=== PATIENT | male | born 1950 | race Caucasian/White ===

== ENCOUNTER 2018-12-29 07:22 | Inpatient (IN) | payer MEDICARE ==
[2018-12-29] MEDS ORDERED: Albuterol Sulfate 2.5 mg/3 ml Neb ONE (07:39)
[2018-12-29] MEDS ORDERED: Albuterol Sulfate 2.5 mg/0.5 ml Neb ONE (07:39)
--- NOTE | 2018-12-29 07:39 | RAD ---
EXAM: Single view of the chest HISTORY: Difficulty breathing COMPARISON: None FINDINGS: Single view of the chest shows a normal sized cardiomediastinal silhouette. There is no mirna dence of consolidation, mass, or pleural effusion. Degenerative changes are seen in the spine. IMPRESSION: No evidence of acute cardiopulmonary disease
[2018-12-29] MEDS ORDERED: Magnesium 2 GM/50 ML BAG (IN WATER) ONE (07:51)
[2018-12-29] MEDS ORDERED: methylPREDNISolone Sod Succ/PF 125 MG/2 ML VIAL ONE (07:51)
[2018-12-29 07:56] LABS: Actual Bicarbonate (HCO3a) 57.5 mEq/L (22-28); Analyzer IN Cardio ER; Base Excess (BEa) 22.6 mEq/L (-2.0 to +3.0); Calcium, Ionized 1.22 mmol/L (1.12-1.30); Carboxyhemoglobin (COHb) 2.1 gm% (0.0-3.0); Hemoglobin (Hb) 14.1 g/dL (14.0-18.0); O2 Tension (PaO2) 73.7 mmHg (> 80.0); Potassium - ABG Lab 4.53 mmol/L (3.70-5.30)
[2018-12-29 07:57] LABS: CO2 Tension 138.2 mmHg (35.0-45.0); Puncture Site LRA; pH, Arterial 7.24 (7.35-7.45)
[2018-12-29 08:02] LABS: INR-International Normal Ratio 1.2
[2018-12-29 08:11] LABS: #Eosinphils 0.3 thou/uL (0.0-0.7); #Lymphocytes 1.4 thou/uL (1.20-3.40); #Monocytes 0.8 thou/uL (0.11-0.59); #Neutrophils 10.8 thou/uL (1.40-6.50); %Basophils 0.2 % (0.0-1.0); %Eosinophils 2.1 % (0.0-10.0); %Lymphocytes 10.7 % (21.0-51.0); %Monocytes 5.6 % (0.0-10.0); %Neutrophils 81.3 % (42.0-75.0); Hemoglobin 13.9 g/dL (14.0-18.0); Mean Corpuscular HGB CONC 29.7 g/dL (32.0-36.0); Mean Platelet Volume 8.2 fL (7.4-10.4); Platelet Count 211 thou/uL (130-400); RBC Distribution Width 12.3 % (11.5-14.5); Red Blood Cell (RBC) Count 4.48 mill/uL (4.70-6.10); White Blood Cell (WBC) Count 13.3 thou/uL (4.8-10.8)
[2018-12-29 08:12] LABS: ALT (SGPT) 9 U/L (8-55); AST (SGOT) 12 U/L (5-34); Albumin 4.1 g/dL (3.4-4.8); Alkaline Phosphatase 53 U/L (40-150); BUN (Urea Nitrogen) 19 mg/dL (8.4-25.7); Bilirubin, Total 0.7 mg/dL (0.2-1.2); CK (CPK) 48 U/L (30-200); Calc. Creatinine Clearance 0 mL/min (70-130); Calcium 10.3 mg/dL (7.8-10.44); Estimated GFR-MDRD Greater than 90; Globulin 3.3 g/dL (2.4-3.5); Protein, Total 7.4 g/dL (5.8-8.1)
[2018-12-29 08:19] LABS: Glucose 168 mg/dL (80-115)
[2018-12-29 08:22] LABS: Chloride 86 mmol/L (98-107); Potassium 4.7 mmol/L (3.5-5.1); Sodium 146 mmol/L (136-145)
[2018-12-29 08:24] LABS: Bilirubin Small (Negative); Blood, Urine Trace (Negative); Glucose, Urine (Dipstick) Negative (Negative); Leukocyte Negative (Negative); Nitrite Negative (Negative); Protein, Urine (Dipstick) > or equal to 300 mg/dL (Neg-Trace)
[2018-12-29 08:24] LABS: Anion Gap 16 mmol/L (10-20)
[2018-12-29 08:27] LABS: Carbon Dioxide 49 mmol/L (23-31)
[2018-12-29 08:29] LABS: Macrocytosis SLIGHT = 6-15 cells (100X) (0-5/hpf); Stomatocytes SLIGHT = 2-5 cells (100X) (0-1/hpf)
[2018-12-29 08:33] LABS: CKMB 2.1 ng/mL (0-6.6)
[2018-12-29 08:37] LABS: Clarity Hazy (Clear)
[2018-12-29 08:45] LABS: RBC/HPF 0-3 HPF (0-3); Renal Epithelial 0-3 HPF (None Seen); Squamous Epithelial 0-3 HPF (0-3); WBC/HPF 0-3 HPF (0-3)
[2018-12-29 08:46] LABS: Bacteria/HPF None Seen HPF (None Seen)
[2018-12-29] MEDS ORDERED: Acetaminophen 325 MG TAB PO PRN (10:52)
[2018-12-29] MEDS ORDERED: Diabetic Tussin 200 MG/10 ML UDCUP PO PRN (10:52)
[2018-12-29] MEDS ORDERED: Sodium Chloride 0.65% Nasal 44 ML BOT EA NARE PRN (10:52)
[2018-12-29] MEDS ORDERED: Bisacodyl 10 MG SUPP PR PRN (10:52)
[2018-12-29] MEDS ORDERED: Loperamide HCl 2 MG CAP PO PRN (10:52)
[2018-12-29] MEDS ORDERED: cloNIDine 0.1 MG TAB PO PRN (10:52)
[2018-12-29] MEDS ORDERED: Senokot S 8.6-50 MG TAB PO PRN (10:52)
[2018-12-29] MEDS ORDERED: Bisacodyl 5 MG TAB PO PRN (10:52)
[2018-12-29] MEDS ORDERED: Ondansetron ODT 4 MG TAB PO PRN (10:52)
[2018-12-29] MEDS ORDERED: Cepastat Lozenges 1 LOZ PO PRN (10:52)
[2018-12-29] MEDS ORDERED: Loratadine 10 MG TAB PO PRN (10:52)
[2018-12-29] MEDS ORDERED: Ondansetron PF 4 MG/2 ML Vial IVP PRN (10:52)
[2018-12-29] MEDS ORDERED: Calcium Carbonate 500 MG ChewTAB PO PRN (10:52)
[2018-12-29] MEDS ORDERED: hydrALAZINE 20 MG/ML VIAL SLOW IVP PRN (10:52)
[2018-12-29 11:21] LABS: Troponin I 0.079 ng/mL (< 0.028)
[2018-12-29] MEDS: cefTRIAXone\\ROCEPHIN 1 GM in Sodium Chloride 0.9% 100 ML IVPB SCH (12:27)
[2018-12-29] MEDS: Sodium Chloride 0.45% 1,000 ML IV SCH (12:27)
--- NOTE | 2018-12-29 13:12 | HP ---
PRIMARY CARE PHYSICIAN: [facility]. REASON FOR ADMISSION: Acute on chronic respiratory failure, COPD and CHF exacerbation, demand ischemia of myocardium, metabolic encephalopathy. HISTORY OF PRESENT ILLNESS: A 68-year-old male, who has underlying history of COPD and CHF. He has home oxygen. He was brought to emergency room with increasing shortness of breath. He was hypoxic at home. He required CPAP by Paramedics. Even after CPAP, he was hypoxic in the emergency room and that is why he required a BiPAP. The patient was only alert and oriented x1, and that is why he was not able to provide any good history. As per report, the patient was combative and disoriented on the road on transfer. The patient lives at home with his , and his called Paramedics because of his increasing shortness of breath that started probably yesterday. 911 was called earlier today. The patient was evaluated in the emergency room and he was found with hypoxia. He has leukocytosis with left shift and elevated troponin. His ABG showed respiratory acidosis and metabolic compensation. When I tried to get history from him, the patient was not able to provide any history and no family member was present, so history was obtained from reviewing emergency room record. REVIEW OF SYSTEMS: All review of system tried to review with the patient, but unable to review because of encephalopathy. PAST MEDICAL HISTORY: 1. Chronic diastolic heart failure. 2. Chronic atrial fibrillation. 3. Chronic respiratory failure with hypoxia and hypercapnia, on home oxygen therapy. 4. COPD. 5. Hypertension. 6. Dyslipidemia. 7. Obesity. 8. Physical deconditioning. PAST SURGICAL HISTORY: Hernia repair. PAST PSYCHIATRIC HISTORY: Senile dementia. SOCIAL HISTORY: The patient is a former smoker. He currently lives at home with his . Six months ago, he used to smoke about 2 packs per day. No alcohol abuse history. FAMILY HISTORY: Unable to obtain from the patient at this point. ALLERGIES: NO KNOWN DRUG ALLERGIES. CURRENT HOME MEDICATIONS: 1. Aspirin 81 mg daily. 2. Pradaxa 150 mg twice daily. 3. Coreg 12.5 mg twice daily. 4. Lisinopril 10 mg daily. 5. Cardizem 30 mg 3 times daily. 6. Lasix 40 mg twice daily. 7. Symbicort 2 puffs inhalation b.i.d. 8. ProAir HFA q.6 hourly. EMERGENCY ROOM COURSE: The patient was requiring BiPAP in the emergency room. He has received DuoNeb therapy, Solu-Medrol 125 mg, magnesium sulfate 2 g, and IV fluid. PHYSICAL EXAMINATION: VITAL SIGNS: Currently in the emergency room, blood pressure 101/66, pulse 63, irregular, respiratory rate 24, temperature 99.1, saturation 92% on BiPAP, weight 117.9 kg. GENERAL: The patient is chronically ill, on BiPAP, appears confused, not answering proper question. HEENT: Head: Normocephalic and atraumatic. Eyes: Pupils round and reactive to light. Extraocular muscles intact. ENT: Oropharynx within normal limits. Moist mucous membranes. No oral lesion. No pharyngeal erythema. NECK: Short neck. Difficult to assess JVD. No thyromegaly. No carotid bruit. LUNGS: Bilateral air entry, reduced on both sides, a few end-expiratory wheezing heard, but no obvious rales noted. No accessory muscles of respiration in use. CARDIAC: S1 and S2, appear slightly irregular. No murmur elicited. No gallop. No rub. ABDOMEN: Soft. Bowel sounds present. Nontender. Nondistended. No organomegaly. No mass. No suprapubic tenderness. BACK: Unremarkable. No CVA tenderness. EXTREMITIES: Upper extremity: Passive movement of all joints are normal. Lower extremity: Bilateral lower extremity edema noted. SKIN: No skin rash, but dry, and old rash noted. NEUROLOGIC: The patient is only alert and oriented x1. He appears confused. He does not follow proper commands, so detailed neurological examination is not possible. SIGNIFICANT LABORATORY DATA: EKG showing atrial fibrillation with controlled ventricular response. Chest x-ray based on my review, no evidence of acute cardiopulmonary process. No pneumonia. CBC: WBC 13.3, hemoglobin 13.9, platelet 211. INR 1.2. ABG: PH 7.24, pCO2 of 138.2, O2 of 73.7, bicarb 57.5, CO2 of 138.2. BMP: Sodium 146, potassium 4.7, chloride 86, carbon dioxide 49, anion gap 16, BUN 19, creatinine 0.74, glucose 168, calcium 10.3, lactic acid 1.0. LFT: AST 12, ALT 9, alkaline phosphatase 53, albumin 4.1. Troponin I 0.065 and then 0.079. Urinalysis suspicious for UTI, but more proteinuria. ASSESSMENT AND PLAN: 1. Acute metabolic encephalopathy, most likely related with a CO2 narcosis. Baseline patient's condition is not known. He might have underlying chronic ischemic white matter changes from his chronic medical problem, and he may have underlying dementia. At this point, mainly CO2 retention contributing to his encephalopathy, though he is not lethargic, but he is confused. He does not have any focal neurological deficit. 2. Acute on chronic respiratory failure with hypoxia and hypercapnia requiring BiPAP. The patient is using home oxygen therapy as well as is using CPAP machine at home. Currently, he will need DuoNeb therapy every 4 hourly, Dulera 2 puffs inhalation b.i.d., Solu-Medrol 40 mg IV q.6 hourly, and empiric antibiotic therapy with Rocephin 1 g q.24 hours. Pulmonary group is already consulted. 3. Chronic obstructive pulmonary disease exacerbation. As mentioned above, the patient is on empiric antibiotic therapy, DuoNeb q.4 hourly, Dulera 2 puffs inhalation b.i.d., Solu-Medrol 40 mg IV q.6 hourly. Pulmonary group is following. 4. Obstructive sleep apnea, on CPAP machine. Currently, the patient is requiring BiPAP for his CO2 retention. Eventually, will transition to home CPAP machine. 5. Acute on chronic respiratory acidosis with metabolic compensation. This patient is started on acetazolamide 500 mg IV daily by Pulmonary group. The patient is on BiPAP therapy. 6. Chronic atrial fibrillation, rate controlled. The patient is on chronic anticoagulation therapy which we will continue while in hospital after verification of his home dose. 7. Demand ischemia of myocardium due to hypoxia and hypercapnia. We will obtain echocardiography. The patient will continue with aspirin 81 mg p.o. daily. 8. Deep venous thrombosis prophylaxis. Currently, we are starting Lovenox, but once the patient's home dose of Pradaxa is confirmed, then we will resume that one and discontinue Lovenox. Currently, continue Lovenox for now. 9. Gastrointestinal prophylaxis. Pepcid 20 mg p.o. or IV daily. 10. Obesity with dietary education given and weight loss education given. 11. Macrocytosis. The patient will need folic acid and vitamin B12 therapy. CODE STATUS: The patient is full code. The patient's is surrogate decision maker. DISPOSITION PLAN: Based on clinical course, we are expecting the patient stay in hospital more than 2 midnights. Plan of care discussed with the patient in detail. He may need placement upon discharge. Job ID: [id number]
[2018-12-29] MEDS ORDERED: Diltiazem 125 MG in Sodium Chloride 0.9% 100 ML IVPB SCH (13:30)
[2018-12-29 14:05] LABS: Troponin I 0.062 ng/mL (< 0.028)
[2018-12-29] MEDS: methylPREDNISolone Sod Succ 40 MG VIAL IVP SCH ×2 (14:49→20:50)
--- NOTE | 2018-12-29 15:05 | CON ---
DATE OF CONSULTATION: HISTORY OF PRESENT ILLNESS: He is a 68-year-old morbidly obese gentleman, well known to me. He has end-stage COPD, long-time smoker, obesity hypoventilation syndrome, who has severe limitation to activities. He can barely walk 50 feet without getting markedly short of breath. He comes to the office on a regular basis. found him this morning with change in mental status, with ongoing shortness of breath with several days duration. He is on a BiPAP and still appears to be somewhat encephalopathic. Initially in the ER, his blood pressure was 150/80, his saturations on 2 L were 90%. Altered mental status, placed on BiPAP. Pulse 93, respirations 23. In the MICU, he is denying any chest pain, chills, or sweats. PAST MEDICAL HISTORY: CHF, cardiac arrhythmia, atrial fibrillation, end-stage COPD, obesity, sleep apnea, and hypertension. PAST SURGICAL HISTORY: Hernia surgery. SOCIAL HISTORY: Tobacco, two pack-a-day smoker. CHRONIC MEDICATIONS: Include; 1. Aspirin. 2. Pradaxa 150. 3. Coreg 25. 4. Lisinopril 20. 5. Cardizem 60. 6. Lasix 40. 7. Symbicort inhaler. 8. Albuterol nebulizer. ALLERGIES: NONE. REVIEW OF SYSTEMS: Otherwise, unremarkable. PHYSICAL EXAMINATION: VITAL SIGNS: : On examination in the MICU, his saturations are 94%, pulse 80, blood pressure 100/80. Extremities: No edema. CHEST: Decreased breath sounds. Prolonged expiration. CARDIAC: S1 and S2. No gallops. ABDOMEN: No masses. LABORATORY DATA: White count 20,000, H and H of 13 and 46, and platelet count is 211. Labs unremarkable. PO2 of 73, pCO2 of 138, pH 7.24 on 100%, bicarb was 49. Troponin is normal. UA is negative. IMAGING DATA: Chest x-ray, no acute infiltrates. IMPRESSION: 1. Acute on chronic respiratory failure. 2. Morbid obesity. 3. Severe chronic obstructive pulmonary disease. 4. Marked metabolic alkalosis from diuretics and chronic pCO2 retention. 5. Atrial fibrillation. PLAN: I have added Diamox to his present treatment. I added neb treatments, steroids, supportive care. Discussed with family code status. This is a 45-minute critical care time. Job ID: [id number]
--- NOTE | 2018-12-29 17:51 | CON ---
DATE OF CONSULTATION: 12/29/2018 REASON FOR CONSULT: Atrial fibrillation with RVR. PRIMARY WEBSPHERE MESSAGE BROKER DEVELOPER: Sawyer Laguerre MD HISTORY OF PRESENT ILLNESS: Mr. Luu is a pleasant 68-year-old white gentleman, comes to the hospital for altered mentation and shortness of breath. He has end-stage COPD with home O2, followed by Dr. Jacques. noted that he was getting significantly more short winded than normal and eventually become altered, so she called 911. He was brought over for this same reason, thought to be hypercapnic and that was the reason why he was altered, so he was placed on a BiPAP and admitted for further evaluation. He has a history of chronic atrial fibrillation and his heart rate has been anywhere from 80s to 130s, but since he has been off the BiPAP and is doing better. His heart rate has remained in the 80s to low 100s. Currently, he is still just a little bit confused with a hard time conversing, but he is able to talk. He is pleasant and is on nasal cannula only. PAST MEDICAL HISTORY: 1. Chronic atrial fibrillation. 2. End-stage COPD. 3. Chronic respiratory insufficiency with hypoxia and hypercapnia, on home O2. 4. Hypertension. 5. Hyperlipidemia. 6. Obesity. 7. Severe deconditioning. 8. Chronic diastolic dysfunction. SURGICAL HISTORY: Hernia repair. SOCIAL HISTORY: Former smoker. No alcohol, tobacco, or drugs. Quit smoking about 6 months ago. He was a two-pack a day smoker before that. FAMILY HISTORY: Noncontributory. OUTPATIENT MEDICATIONS: 1. Aspirin 81 a day. 2. Pradaxa 150 mg twice a day. 3. Coreg 12.5 b.i.d. 4. Lisinopril 10 mg a day. 5. Cardizem 30 mg 3 times a day. 6. Lasix 40 mg twice a day. 7. Symbicort. 8. ProAir. ALLERGIES: NO KNOWN DRUG ALLERGIES. REVIEW OF SYSTEMS: Unobtainable as the patient remains confused. PHYSICAL EXAMINATION: VITAL SIGNS: Temperature 98.3, pulse 94, respiratory rate 18, sat 94% on 2 L nasal cannula, blood pressure 146/102. GENERAL: Awake, alert, and oriented to person only, in no distress. HEENT: Normocephalic and atraumatic. NECK: Supple. LUNGS: Lungs are reduced breath sounds bilateral. CARDIOVASCULAR: Irregularly irregular, heart rate in the 90s. ABDOMEN: Soft, positive bowel sounds. EXTREMITIES: 1+ edema. SKIN: Warm and dry. LABORATORY DATA: Laboratory work was reviewed. White count of 13, hemoglobin 13, hematocrit 46, platelet count of 211. Coags were reviewed. ABG was reviewed. His CO2 was 138. Chemistry with a sodium 146, potassium 4.7, chloride of 86, carbon dioxide of 49, gap was 16, normal BUN and creatinine. Troponin is indeterminate x3 of 0.06, 0.07, and 0.06 with a normal CK-MB. DIAGNOSTIC DATA: EKG was reviewed. Chest x-ray was reviewed. ASSESSMENT AND PLAN: 1. Chronic obstructive pulmonary disease with acute exacerbation. 2. [id number] diastolic heart failure. One dose of IV Lasix has been already given. Will not diurese any further. 3. Chronic atrial fibrillation, currently rate controlled and has been rapid ventricular response in the recent past. PLAN: 1. His ventricular rate has slowed down, now that his COPD is better controlled. I would not change any of his medications at this time. We would continue with current doses of diltiazem as most likely the reason why his atrial fibrillation and RVR was because of his altered mentation and hypercapnic hypoxic respiratory insufficiency. 2. Continue to monitor on telemetry. Thank you for letting me to participate in the care of your patient. We will follow. Job ID: [id number]
[2018-12-29] MEDS: Mometasone/Formoterol 120 PUFF INHALER INH SCH (18:29)
[2018-12-29] MEDS: Famotidine 20 MG TAB PO SCH (20:50)
[2018-12-29] MEDS: Famotidine/PF 20 mg/2ml Vial SLOW IVP SCH (21:27)
[2018-12-30] MEDS: methylPREDNISolone Sod Succ 40 MG VIAL IVP SCH ×4 (01:54→20:57)
[2018-12-30 06:14] LABS: ALT (SGPT) 7 U/L (8-55); AST (SGOT) 8 U/L (5-34); Albumin 3.6 g/dL (3.4-4.8); Alkaline Phosphatase 43 U/L (40-150); BUN (Urea Nitrogen) 19 mg/dL (8.4-25.7); Bilirubin, Total 0.6 mg/dL (0.2-1.2); Calc. Creatinine Clearance 195 mL/min (70-130); Calcium 9.9 mg/dL (7.8-10.44); Estimated GFR-MDRD Greater than 90; Globulin 2.8 g/dL (2.4-3.5); Glucose 169 mg/dL (80-115); Protein, Total 6.4 g/dL (5.8-8.1)
[2018-12-30 06:34] LABS: Chloride 88 mmol/L (98-107); Potassium 4.7 mmol/L (3.5-5.1); Sodium 141 mmol/L (136-145)
[2018-12-30 06:37] LABS: Anion Gap 11 mmol/L (10-20)
[2018-12-30 06:45] LABS: Hemoglobin 12.9 g/dL (14.0-18.0); Mean Corpuscular HGB CONC 30.6 g/dL (32.0-36.0); Mean Platelet Volume 8.6 fL (7.4-10.4); Platelet Count 168 thou/uL (130-400); RBC Distribution Width 12.5 % (11.5-14.5); Red Blood Cell (RBC) Count 4.16 mill/uL (4.70-6.10); White Blood Cell (WBC) Count 12.5 thou/uL (4.8-10.8)
[2018-12-30 06:46] LABS: Carbon Dioxide 47 mmol/L (23-31)
[2018-12-30] MEDS: Mometasone/Formoterol 120 PUFF INHALER INH SCH ×2 (08:01→18:44)
--- NOTE | 2018-12-30 08:55 | PRG ---
DATE OF SERVICE: 12/30/2018 SUBJECTIVE: This morning, he is awake, alert, and responsive. Bicarb is still 47. OBJECTIVE: VITAL SIGNS: Saturations 97% on 2 L, temperature 98, pulse 79, and blood pressure 150/80. EXTREMITIES: No edema. CHEST: Decreased breath sounds. No wheezing. CARDIAC: Normal S1 and S2. No gallops. ABDOMEN: No masses. IMPRESSION AND PLAN: 1. End-stage chronic obstructive pulmonary disease and sleep apnea with marked respiratory acidosis. 2. Marked metabolic alkalosis in combination of respiratory failure along with diuretics, volume contraction. I will discontinue the Lasix. Continue Diamox. Repeat echo. Supportive care, PT. He is a full code. Job ID: [id number]
[2018-12-30] MEDS: Aspirin Chewable 81 MG TAB PO SCH (09:00)
[2018-12-30] MEDS ORDERED: Enoxaparin Sodium 40 MG/0.4 ML SYRINGE SC SCH (09:00)
[2018-12-30] MEDS: Famotidine 20 MG TAB PO SCH ×2 (09:00→20:57)
[2018-12-30] MEDS: Folic Acid 1 MG TAB PO SCH (09:00)
[2018-12-30] MEDS ORDERED: Furosemide 40 MG TAB PO SCH (09:00)
[2018-12-30] MEDS: Lisinopril 20 MG TAB PO SCH (09:00)
[2018-12-30] MEDS: Cyanocobalamin (Vitamin B-12) 1,000 MCG TAB PO SCH (09:00)
[2018-12-30] MEDS: Carvedilol 25 MG TAB PO SCH ×2 (09:01→20:57)
[2018-12-30] MEDS: acetaZOLAMIDE Sodium 500 mg Vial IVP SCH (09:01)
[2018-12-30 09:02] LABS: Band 1 % (5-11); Eosinophils 1 % (0-10); Lymphocytes 12 % (21-51); MDiff Complete? YES; Monocytes 2 % (0-10); Neutrophil 84 % (42-75); RBC Morphology Normal
[2018-12-30] MEDS: Diltiazem HCl SR 60 mg Capsule PO SCH ×3 (09:02→20:57)
[2018-12-30] MEDS: Dabigatran 150 mg Capsule PO SCH ×2 (09:02→20:57)
[2018-12-30] MEDS: Famotidine/PF 20 mg/2ml Vial SLOW IVP SCH ×2 (09:03→20:58)
[2018-12-30] MEDS: Sodium Chloride 0.45% 1,000 ML IV SCH (09:03)
[2018-12-30] MEDS: cefTRIAXone\\ROCEPHIN 1 GM in Sodium Chloride 0.9% 100 ML IVPB SCH (11:40)
--- NOTE | 2018-12-30 13:20 | PDOC.HOSPP ---
- Subjective Subjective: Patient seen and examined. No new complaints. No overnight events - Objective Vital Signs & Weight: Vital Signs (12 hours) Temp Pulse Resp BP Pulse Ox 12/30/18 10:41 98.0 F 12/30/18 10:23 99 15 91 L 12/30/18 09:00 135/92 H 12/30/18 08:22 97 12/30/18 07:28 79 12/30/18 07:27 74 15 93 L 12/30/18 07:10 97.1 F L 12/30/18 04:00 97.5 F L 12/30/18 02:21 76 19 95 Weight Weight 279 lb 1.6 oz Most Recent Monitor Data Heart Rate from ECG 80 NIBP 122/86 NIBP BP-Mean 98 Respiration from ECG 16 SpO2 95 I&O: 12/29/18 12/30/18 12/31/18 06:59 06:59 06:59 Intake Total 1974.9 Output Total 1250 Balance 724.9 Result Diagrams: 12/30/18 05:41 12/30/18 05:40 EKG Reviewed by me: Yes ROS - Review of Systems All systems: All other ROS were reviewed and found negative. ENT: denies: ear pain, ear discharge, nose pain, nose discharge, nose congestion , mouth pain, mouth swelling, throat pain, throat swelling, other Respiratory: reports: shortness of breath, SOB with excertion. denies: cough, dry, hemoptysis, pleuritic pain, sputum, wheezing, other Cardiovascular: denies: chest pain, palpitations, orthopnea, paroxysmal noc. dyspnea, edema, light headedness, other Gastrointestinal: denies: nausea, vomitting, abdominal pain, diarrhea, constipation, melena, hematochezia, other Genitourinary: denies: dysuria, frequency, incontinence, hematuria, retention, other Musculoskeletal: denies: neck pain, shoulder pain, arm pain, back pain, hand pain, leg pain, foot pain, other - Medication Medications: Active Medications Generic Name Dose Route Start Last Admin Trade Name Freq PRN Reason Stop Dose Admin Acetazolamide Sodium 500 mg 12/30/18 09:00 12/30/18 09:01 Diamox IVP 01/02/19 09:01 500 mg DAILY MELISSA Administration Albuterol/Ipratropium 3 ml 12/29/18 14:30 12/30/18 10:23 Duoneb NEB 3 ml [id number] MELISSA Administration Aspirin 81 mg 12/30/18 09:00 12/30/18 09:00 Aspirin Chewable PO 81 mg DAILY MELISSA Administration Carvedilol 25 mg 12/30/18 09:00 12/30/18 09:01 Coreg PO 25 mg BID MELISSA Administration Cyanocobalamin 1,000 mcg 12/30/18 09:00 12/30/18 09:00 Vitamin B-12 PO 1,000 mcg DAILY MELISSA Administration Dabigatran 150 mg 12/30/18 09:00 12/30/18 09:02 Pradaxa PO 150 mg BID MELISSA Administration Diltiazem HCl 60 mg 12/30/18 09:00 12/30/18 09:02 Cardizem Sr PO 60 mg TID MELISSA Administration Famotidine 20 mg 12/29/18 21:00 12/30/18 09:03 Pepcid SLOW IVP Not Given Q12HR MELISSA Famotidine 20 mg 12/29/18 21:00 12/30/18 09:00 Pepcid PO 20 mg BID MELISSA Administration Folic Acid 1 mg 12/30/18 09:00 12/30/18 09:00 Folvite PO 1 mg DAILY MELISSA Administration Ceftriaxone Sodium 1 gm/ 100 mls @ 200 mls/hr 12/29/18 12:00 12/30/18 11:40 Sodium Chloride IVPB 100 mls 1200 MELISSA Administration Sodium Chloride 1,000 mls @ 50 mls/hr 12/29/18 11:15 12/30/18 09:03 1/2 Normal Saline IV 1,000 mls .Q20H MELISSA Administration Diltiazem HCl 125 mg/ Sodium 125 mls @ 5 mls/hr 12/29/18 13:30 12/29/18 14:48 Chloride IVPB 125 mls INF MELISSA Administration Protocol 5 MG/HR Lisinopril 20 mg 12/30/18 09:00 12/30/18 09:00 Zestril PO 20 mg DAILY MELISSA Administration Methylprednisolone Sodium Succinate 40 mg 12/29/18 14:00 12/30/18 09:01 Solu-Medrol IVP 40 mg 0200,0800,1400,2000 MELISSA Administration Mometasone Furoate/Formoterol Fumar 2 puff 12/29/18 18:30 12/30/18 08:01 Dulera 200 Mcg/5 Mcg Inhaler INH 2 puff BID-RT MELISSA Administration Hosp A/P (1) Acute metabolic encephalopathy Code(s): G93.41 - METABOLIC ENCEPHALOPATHY Status: Acute (2) Acute on chronic respiratory failure with hypoxia and hypercapnia Code(s): J96.21 - ACUTE AND CHRONIC RESPIRATORY FAILURE WITH HYPOXIA; J96.22 - ACUTE AND CHRONIC RESPIRATORY FAILURE WITH HYPERCAPNIA Status: Acute (3) COPD exacerbation Code(s): J44.1 - CHRONIC OBSTRUCTIVE PULMONARY DISEASE W (ACUTE) EXACERBATION Status: Acute (4) Type 2 myocardial infarction Code(s): I21.A1 - MYOCARDIAL INFARCTION TYPE 2 Status: Acute (5) Chronic anticoagulation Code(s): Z79.01 - REEL ASSEMBLER (CURRENT) USE OF ANTICOAGULANTS Status: Chronic (6) Chronic atrial fibrillation with RVR Code(s): I48.2 - CHRONIC ATRIAL FIBRILLATION Status: Chronic (7) Chronic respiratory acidosis Code(s): E87.2 - ACIDOSIS Status: Chronic (8) Chronic stage c diastolic heart failure Code(s): I50.32 - CHRONIC DIASTOLIC (CONGESTIVE) HEART FAILURE Status: Chronic (9) Dyslipidemia Code(s): E78.5 - HYPERLIPIDEMIA, UNSPECIFIED Status: Chronic (10) Hypertension Code(s): I10 - ESSENTIAL (PRIMARY) HYPERTENSION Status: Chronic (11) Macrocytosis Code(s): D75.89 - OTHER SPECIFIED DISEASES OF BLOOD AND BLOOD-FORMING ORGANS Status: Chronic (12) PAIGE on CPAP Code(s): G47.33 - OBSTRUCTIVE SLEEP APNEA (ADULT) (PEDIATRIC); Z99.89 - DEPENDENCE ON OTHER ENABLING MACHINES AND DEVICES Status: Chronic (13) Obesity (BMI 30-39.9) Code(s): E66.9 - OBESITY, UNSPECIFIED Status: Chronic - Plan old records reviewed/req, plan discussed w/ family, continue antibiotics, respiratory therapy pt has improvement home medication reconciled dc lasix continue diamox continue rocephin and steroid discussed with transfer to tele will defer to pulmonary continue bipap
[2018-12-30] MEDS: Rosuvastatin 5 MG TAB PO SCH (20:57)
[2018-12-31] MEDS: methylPREDNISolone Sod Succ 40 MG VIAL IVP SCH ×3 (02:32→12:05)
[2018-12-31] MEDS: Sodium Chloride 0.45% 1,000 ML IV SCH (02:34)
[2018-12-31] MEDS: Lisinopril 20 MG TAB PO SCH (08:51)
[2018-12-31] MEDS: Cyanocobalamin (Vitamin B-12) 1,000 MCG TAB PO SCH (08:51)
[2018-12-31] MEDS: Dabigatran 150 mg Capsule PO SCH ×2 (08:51→21:45)
[2018-12-31] MEDS: Aspirin Chewable 81 MG TAB PO SCH (08:51)
[2018-12-31] MEDS: Carvedilol 25 MG TAB PO SCH ×2 (08:51→21:44)
[2018-12-31] MEDS: Famotidine 20 MG TAB PO SCH ×2 (08:52→21:45)
[2018-12-31] MEDS: Diltiazem HCl SR 60 mg Capsule PO SCH ×3 (08:52→21:45)
[2018-12-31] MEDS: Folic Acid 1 MG TAB PO SCH (08:52)
[2018-12-31] MEDS: acetaZOLAMIDE Sodium 500 mg Vial IVP SCH (08:52)
[2018-12-31] MEDS: Famotidine/PF 20 mg/2ml Vial SLOW IVP SCH ×2 (08:56→22:21)
[2018-12-31] MEDS: Sterile Water 10 ML VIAL IVP SCH (09:19)
[2018-12-31] MEDS: Cefdinir 300 MG CAP PO SCH ×2 (09:20→21:44)
[2018-12-31 09:39] LABS: BUN (Urea Nitrogen) 22 mg/dL (8.4-25.7); Calc. Creatinine Clearance 180 mL/min (70-130); Calcium 9.9 mg/dL (7.8-10.44); Estimated GFR-MDRD Greater than 90; Glucose 209 mg/dL (80-115)
[2018-12-31 09:49] LABS: Anion Gap 12 mmol/L (10-20); Carbon Dioxide 40 mmol/L (23-31); Chloride 92 mmol/L (98-107); Sodium 140 mmol/L (136-145)
[2018-12-31] MEDS ORDERED: methylPREDNISolone Sod Succ 40 MG VIAL IVP SCH (12:15)
[2018-12-31] MEDS: Mometasone/Formoterol 120 PUFF INHALER INH SCH ×2 (13:19→15:04)
[2018-12-31] MEDS ORDERED: Dextrose 50% Abboject 50 ML SYRINGE SLOW IVP PRN (14:06)
[2018-12-31] MEDS ORDERED: Dextrose 5% in Water 1,000 ML IV PRN (14:06)
--- NOTE | 2018-12-31 14:29 | PRG ---
DATE OF SERVICE: 12/31/2018 SUBJECTIVE: The patient is seen and examined at the bedside. His mental condition definitely improved. He is able to answer my questions properly. He does not remember that he was told by his doctor that he has some prostate problem, but he noticed that his urinary flow is significantly diminished, especially recently and he has post voiding dripping. OBJECTIVE: VITAL SIGNS: Blood pressure is 122/75, pulse is 77, respiratory rate is 14, and O2 saturation is 94% on O2. HEENT: His head is atraumatic and normocephalic. Eyes are PERRLA. Sclerae are nonicteric. Oral mucosa is moist. NECK: Supple. LUNGS: Emphysematous. HEART: S1 and S2 normal. No S3. No S4. ABDOMEN: Soft, nontender, slightly obese. EXTREMITIES: No clubbing or cyanosis. There is a 1+ peripheral edema similar bilaterally on both lower extremities. NEUROLOGICAL: He follows my commands. He moves his all 4 extremities. LABORATORY DATA: Labs showed sodium of 140; potassium 4.0; chloride 92; CO2 of 40; BUN 22; creatinine 0.7; and glucose is 209, it was 169 yesterday. Urine culture negative. Blood cultures x2 negative. IMPRESSION: 1. Acute metabolic encephalopathy, improved. 2. Acute on chronic respiratory failure with hypoxemia and hypercapnia. 3. Chronic obstructive pulmonary disease exacerbation. 4. Type 2 myocardial infarction. 5. Chronic anticoagulation. 6. Chronic atrial fibrillation with rapid ventricular response. 7. Chronic respiratory acidosis. 8. Chronic stage C diastolic heart failure. 9. Dyslipidemia. 10. Hyperlipidemia. 11. Urinary retention. PLAN: The patient has most likely prostate enlargement. I did not examine him, but he has symptoms suggestive of some urinary bladder obstruction. We will start him on Flomax 0.4 mg at bedtime and keep his Celeste catheter in for now and will remove it in the next few days before he is discharged home. Also, we will do PSA. We will continue his Diamox. Lasix was stopped. Continue steroids. He was switched to p.o. and continue noninvasive supportive respiratory treatments at night. Job ID: [id number]
[2018-12-31] MEDS: HumaLOG 300 UNITS/3 ML VIAL SC PRN (18:20)
[2018-12-31] MEDS: Tamsulosin HCl 0.4 MG CAP PO SCH (21:45)
[2018-12-31] MEDS: Rosuvastatin 5 MG TAB PO SCH (21:45)
[2019-01-01 05:59] LABS: #Lymphocytes 0.9 thou/uL (1.20-3.40); #Monocytes 0.5 thou/uL (0.11-0.59); #Neutrophils 12.3 thou/uL (1.40-6.50); %Basophils 0.1 % (0.0-1.0); %Eosinophils 0.1 % (0.0-10.0); %Lymphocytes 6.5 % (21.0-51.0); %Monocytes 3.9 % (0.0-10.0); %Neutrophils 89.4 % (42.0-75.0); Hemoglobin 12.7 g/dL (14.0-18.0); Mean Corpuscular HGB CONC 31.3 g/dL (32.0-36.0); Mean Corpuscular Volume 99.1 fL (78.0-98.0); Mean Platelet Volume 8.6 fL (7.4-10.4); Platelet Count 178 thou/uL (130-400); RBC Distribution Width 12.9 % (11.5-14.5); White Blood Cell (WBC) Count 13.7 thou/uL (4.8-10.8)
[2019-01-01 06:19] LABS: BUN (Urea Nitrogen) 30 mg/dL (8.4-25.7); Calc. Creatinine Clearance 203 mL/min (70-130); Calcium 9.9 mg/dL (7.8-10.44); Estimated GFR-MDRD Greater than 90; Glucose 166 mg/dL (80-115)
[2019-01-01] MEDS: HumaLOG 300 UNITS/3 ML VIAL SC PRN ×4 (06:23→22:32)
[2019-01-01 06:31] LABS: Chloride 94 mmol/L (98-107); Potassium 4.1 mmol/L (3.5-5.1); Sodium 139 mmol/L (136-145)
[2019-01-01 06:33] LABS: Anion Gap 13 mmol/L (10-20); Carbon Dioxide 36 mmol/L (23-31)
[2019-01-01 07:20] VITALS: BMI 37.6
[2019-01-01] MEDS: Mometasone/Formoterol 120 PUFF INHALER INH SCH ×2 (07:29→19:19)
[2019-01-01 08:11] LABS: % Free PSA 12.1 % (.); Total PSA 2.4 ng/mL (0.0-4.0)
[2019-01-01] MEDS: acetaZOLAMIDE Sodium 500 mg Vial IVP SCH (08:30)
[2019-01-01] MEDS: Cyanocobalamin (Vitamin B-12) 1,000 MCG TAB PO SCH (08:31)
[2019-01-01] MEDS: Diltiazem HCl SR 60 mg Capsule PO SCH ×3 (08:31→21:01)
[2019-01-01] MEDS: Cefdinir 300 MG CAP PO SCH ×2 (08:31→21:00)
[2019-01-01] MEDS: Dabigatran 150 mg Capsule PO SCH ×2 (08:31→21:01)
[2019-01-01] MEDS: Carvedilol 25 MG TAB PO SCH ×2 (08:31→21:02)
[2019-01-01] MEDS: Folic Acid 1 MG TAB PO SCH (08:31)
[2019-01-01] MEDS: Aspirin Chewable 81 MG TAB PO SCH (08:32)
[2019-01-01] MEDS: Lisinopril 20 MG TAB PO SCH (08:32)
[2019-01-01] MEDS: Famotidine 20 MG TAB PO SCH ×2 (08:32→21:02)
[2019-01-01] MEDS: predniSONE 20 MG TAB PO SCH (08:32)
[2019-01-01] MEDS: Ketoconazole 2% Cream 15 gm Tube TOP SCH (08:44)
[2019-01-01] MEDS: Sterile Water 10 ML VIAL IVP SCH (08:45)
--- NOTE | 2019-01-01 10:24 | PRG ---
DATE OF SERVICE: 01/01/2019 SUBJECTIVE: Neeraj Luu this morning is awake and responsive . OBJECTIVE: VITAL SIGNS: Blood pressure 135/89, pulse 80, respiratory rate 18, saturations 95% on 2 L. CHEST: Decreased breath sounds. No wheezing. CARDIAC: Normal S1, S2. No gallops. ABDOMEN: Soft. LABORATORY DATA: His bicarb is down to 36. Otherwise, glucose is slightly elevated. White count is normal. IMPRESSION: Chronic obstructive pulmonary disease exacerbation, bronchitis, sleep apnea. PLAN: Continue aggressive PT supportive care, nocturnal CPAP. Job ID: [id number]
--- NOTE | 2019-01-01 17:24 | PDOC.HOSPP ---
- Subjective Subjective: 68 y/o male with chronic respiratory failure from COPD, OHS on home oxygen admitted with worsening SOB associated with acute mental status change.Feeling better. Was having asymptomatic pauses with bradycardia on tele. - Objective Vital Signs & Weight: Vital Signs (12 hours) Temp Pulse Resp BP Pulse Ox 01/01/19 15:13 97.3 F L 01/01/19 15:09 50 L 15 98 01/01/19 11:28 69 20 01/01/19 11:16 96.9 F L 01/01/19 11:06 64 23 H 95 01/01/19 08:32 135/89 01/01/19 07:37 97.4 F L 01/01/19 07:30 90 L 01/01/19 07:20 81 17 91 L Weight Weight 278 lb 3.2 oz Most Recent Monitor Data Heart Rate from ECG 69 NIBP 113/64 NIBP BP-Mean 80 Respiration from ECG 13 SpO2 97 I&O: 12/31/18 01/01/19 01/02/19 06:59 06:59 06:59 Intake Total 2215.2 810 Output Total 3250 2575 Balance -1034.8 -1495 Result Diagrams: 01/01/19 05:38 01/01/19 05:38 Additional Labs: Accuchecks 01/01/19 01/01/19 01/01/19 16:40 10:40 05:29 POC Glucose 202 H 244 H 166 H 12/31/18 12/31/18 23:36 16:04 POC Glucose 134 H 270 H ROS - Review of Systems All systems: All other ROS were reviewed and found negative. - Medication Medications: Active Medications Generic Name Dose Route Start Last Admin Trade Name Freq PRN Reason Stop Dose Admin Acetazolamide Sodium 500 mg 12/30/18 09:00 01/01/19 08:30 Diamox IVP 01/02/19 09:01 500 mg DAILY MELISSA Administration Albuterol/Ipratropium 3 ml 12/29/18 14:30 01/01/19 15:09 Duoneb NEB 3 ml [id number] MELISSA Administration Aspirin 81 mg 12/30/18 09:00 01/01/19 08:32 Aspirin Chewable PO 81 mg DAILY MELISSA Administration Bisacodyl 10 mg 12/29/18 10:52 12/31/18 09:20 Dulcolax PO 10 mg DAILYPRN PRN Administration Constipation Carvedilol 25 mg 12/30/18 09:00 01/01/19 08:31 Coreg PO 25 mg BID MELISSA Administration Cefdinir 300 mg 12/31/18 09:00 01/01/19 08:31 Omnicef PO 01/05/19 09:01 300 mg BID MELISSA Administration Cyanocobalamin 1,000 mcg 12/30/18 09:00 01/01/19 08:31 Vitamin B-12 PO 1,000 mcg DAILY MELISSA Administration Dabigatran 150 mg 12/30/18 09:00 01/01/19 08:31 Pradaxa PO 150 mg BID MELISSA Administration Diltiazem HCl 60 mg 12/30/18 09:00 01/01/19 17:09 Cardizem Sr PO Not Given TID MELISSA Famotidine 20 mg 12/29/18 21:00 01/01/19 08:32 Pepcid PO 20 mg BID MELISSA Administration Folic Acid 1 mg 12/30/18 09:00 01/01/19 08:31 Folvite PO 1 mg DAILY MELISSA Administration Diltiazem HCl 125 mg/ Sodium 125 mls @ 5 mls/hr 12/29/18 13:30 12/29/18 14:48 Chloride IVPB 125 mls INF MELISSA Administration Protocol 5 MG/HR Insulin Human Lispro 0 units 12/31/18 14:06 01/01/19 11:08 Humalog SC 3 unit .MILD SLIDING SCALE PRN Administration Mild Correctional Scale Ketoconazole 0.5 gm 01/01/19 09:00 01/01/19 08:44 Nizoral 2% Cream TOP 0.5 gm DAILY MELISSA Administration Lisinopril 20 mg 12/30/18 09:00 01/01/19 08:32 Zestril PO 20 mg DAILY MELISSA Administration Mometasone Furoate/Formoterol Fumar 2 puff 12/29/18 18:30 01/01/19 07:29 Dulera 200 Mcg/5 Mcg Inhaler INH 2 puff BID-RT MELISSA Administration Prednisone 20 mg 01/01/19 08:00 01/01/19 08:32 Prednisone PO 20 mg QAM-WM MELISSA Administration Rosuvastatin Calcium 5 mg 12/30/18 21:00 12/31/18 21:45 Crestor PO 5 mg HS MELISSA Administration Sterile Water 10 ml 12/31/18 09:00 01/01/19 08:45 Water For Injection IVP 01/02/19 09:01 10 ml DAILY MELISSA Administration Tamsulosin HCl 0.4 mg 12/31/18 21:00 12/31/18 21:45 Flomax PO 0.4 mg HS MELISSA Administration - Exam awake alert (obese) Eye: PERRL, anicteric sclera ENT: normocephalic atraumatic, moist mucosa Neck: no JVD Heart: irregular Respiratory: no wheezes (Fair air entry with few transmitted sound. expiratory phase is mildly prolonged.), no rales Gastrointestinal: soft, non-tender, non-distended, normal bowel sounds (obese) Extremities: no cyanosis, no clubbing, 1+ LE edema Neurological: CN's grossly intact, no focal deficits Psychiatric: normal affect, A&O x 3 Hosp A/P (1) Hyperglycemia Code(s): R73.9 - HYPERGLYCEMIA, UNSPECIFIED Status: Acute (2) Acute metabolic encephalopathy Code(s): G93.41 - METABOLIC ENCEPHALOPATHY Status: Acute (3) Acute on chronic respiratory failure with hypoxia and hypercapnia Code(s): J96.21 - ACUTE AND CHRONIC RESPIRATORY FAILURE WITH HYPOXIA; J96.22 - ACUTE AND CHRONIC RESPIRATORY FAILURE WITH HYPERCAPNIA Status: Acute (4) COPD exacerbation Code(s): J44.1 - CHRONIC OBSTRUCTIVE PULMONARY DISEASE W (ACUTE) EXACERBATION Status: Acute (5) Type 2 myocardial infarction Code(s): I21.A1 - MYOCARDIAL INFARCTION TYPE 2 Status: Acute (6) Chronic atrial fibrillation with RVR Code(s): I48.2 - CHRONIC ATRIAL FIBRILLATION Status: Chronic (7) Chronic respiratory acidosis Code(s): E87.2 - ACIDOSIS Status: Chronic (8) Chronic stage c diastolic heart failure Code(s): I50.32 - CHRONIC DIASTOLIC (CONGESTIVE) HEART FAILURE Status: Chronic (9) Dyslipidemia Code(s): E78.5 - HYPERLIPIDEMIA, UNSPECIFIED Status: Chronic (10) Hypertension Code(s): I10 - ESSENTIAL (PRIMARY) HYPERTENSION Status: Chronic (11) PAIGE on CPAP Code(s): G47.33 - OBSTRUCTIVE SLEEP APNEA (ADULT) (PEDIATRIC); Z99.89 - DEPENDENCE ON OTHER ENABLING MACHINES AND DEVICES Status: Chronic (12) Obesity (BMI 30-39.9) Code(s): E66.9 - OBESITY, UNSPECIFIED Status: Chronic - Plan Start low dose lasix. Start Mucinex. Continue antibiotic, steroid and bronchodilators. 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 Follow renal function and electrolytes. BIPAP at night to continue.
[2019-01-01] MEDS ORDERED: Furosemide 20 MG TAB PO SCH (17:30)
[2019-01-01] MEDS: Rosuvastatin 5 MG TAB PO SCH (21:01)
[2019-01-01] MEDS: Tamsulosin HCl 0.4 MG CAP PO SCH (21:02)
[2019-01-01] MEDS: guaiFENesin ER 600 MG TAB PO SCH (21:02)
[2019-01-02 04:45] LABS: Anion Gap 11 mmol/L (10-20); BUN (Urea Nitrogen) 41 mg/dL (8.4-25.7); Calc. Creatinine Clearance 186 mL/min (70-130); Calcium 9.3 mg/dL (7.8-10.44); Carbon Dioxide 35 mmol/L (23-31); Chloride 96 mmol/L (98-107); Estimated GFR-MDRD Greater than 90; Glucose 108 mg/dL (80-115); Potassium 3.8 mmol/L (3.5-5.1); Sodium 138 mmol/L (136-145)
[2019-01-02] MEDS ORDERED: Azithromycin 250 MG TAB PO SCH (09:00)
--- NOTE | 2019-01-02 09:30 | PRG ---
DATE OF SERVICE: 01/02/2019 SUBJECTIVE: This morning, he is awake, alert, responsive. He is better. His bicarb has decreased to . OBJECTIVE: VITAL SIGNS: Blood pressure 101/70, CHEST: Decreased breath sounds. No wheezing. CARDIAC: Normal S1 and S2. No gallops. ABDOMEN: No masses. IMPRESSION: 1. Morbid obesity, chronic obstructive pulmonary disease, sleep apnea, chronic stasis. 2. Normal ejection fraction and diastolic dysfunction. PLAN: Try and avoid excessive amount of diuretics, if possible. PT, supportive care. Once he is ambulating, he can be discharged home. Job ID: [id number]
[2019-01-02] MEDS: Aspirin Chewable 81 MG TAB PO SCH (09:39)
[2019-01-02] MEDS: acetaZOLAMIDE Sodium 500 mg Vial IVP SCH (09:39)
[2019-01-02] MEDS: predniSONE 20 MG TAB PO SCH (09:39)
[2019-01-02] MEDS: Carvedilol 25 MG TAB PO SCH ×2 (09:40→20:24)
[2019-01-02] MEDS: Cefdinir 300 MG CAP PO SCH ×2 (09:40→20:23)
[2019-01-02] MEDS: Dabigatran 150 mg Capsule PO SCH ×2 (09:40→20:23)
[2019-01-02] MEDS: Cyanocobalamin (Vitamin B-12) 1,000 MCG TAB PO SCH (09:40)
[2019-01-02] MEDS: Diltiazem HCl SR 60 mg Capsule PO SCH ×3 (09:40→20:24)
[2019-01-02] MEDS: Famotidine 20 MG TAB PO SCH ×2 (09:40→20:23)
[2019-01-02] MEDS: Lisinopril 20 MG TAB PO SCH (09:41)
[2019-01-02] MEDS: Furosemide 20 MG TAB PO SCH (09:41)
[2019-01-02] MEDS: guaiFENesin ER 600 MG TAB PO SCH ×2 (09:41→20:23)
[2019-01-02] MEDS: Ketoconazole 2% Cream 15 gm Tube TOP SCH (09:41)
[2019-01-02] MEDS: Folic Acid 1 MG TAB PO SCH (09:41)
[2019-01-02] MEDS: Mometasone/Formoterol 120 PUFF INHALER INH SCH ×2 (10:34→18:48)
[2019-01-02] MEDS: Sterile Water 10 ML VIAL IVP SCH (11:41)
--- NOTE | 2019-01-02 13:14 | PDOC.HOSPP ---
- Subjective Subjective: 68 y/o male with chronic respiratory failure from COPD, OHS on home oxygen admitted with worsening SOB associated with acute mental status change. Treated with BIPAP, steroid and nronchodilators with improvement. No new problem. Feeling better. - Objective Vital Signs & Weight: Vital Signs (12 hours) Temp Pulse Pulse Pulse Resp BP BP 01/02/19 11:21 97.8 F 01/02/19 10:34 89 18 01/02/19 10:27 01/02/19 10:25 89 18 01/02/19 09:52 80 58 L 106/67 01/02/19 09:41 135/89 01/02/19 08:00 01/02/19 07:32 96.9 F L 01/02/19 06:36 73 01/02/19 04:28 97.5 F L 01/02/19 02:12 57 L 12 BP Pulse Ox Pulse Ox Pulse Ox 01/02/19 11:21 01/02/19 10:34 01/02/19 10:27 96 01/02/19 10:25 01/02/19 09:52 113/76 95 90 L 01/02/19 09:41 01/02/19 08:00 98 01/02/19 07:32 01/02/19 06:36 01/02/19 04:28 01/02/19 02:12 95 Weight Weight 275 lb 2 oz Most Recent Monitor Data Heart Rate from ECG 73 NIBP 101/70 NIBP BP-Mean 80 Respiration from ECG 17 SpO2 95 I&O: 01/01/19 01/02/19 01/03/19 06:59 06:59 06:59 Intake Total 810 1740 Output Total 2575 1450 Balance -1765 290 Result Diagrams: 01/01/19 05:38 01/02/19 04:20 Additional Labs: Accuchecks 01/02/19 01/02/19 01/01/19 10:42 05:47 20:45 POC Glucose 126 H 102 270 H 01/01/19 16:40 POC Glucose 202 H ROS - Review of Systems All systems: All other ROS were reviewed and found negative. - Medication Medications: Active Medications Generic Name Dose Route Start Last Admin Trade Name Freq PRN Reason Stop Dose Admin Acetaminophen 650 mg 12/29/18 10:52 01/02/19 11:40 Tylenol PO 650 mg Q4H PRN Administration Headache/Fever/Mild Pain (1-3) Albuterol/Ipratropium 3 ml 12/29/18 14:30 01/02/19 10:25 Duoneb NEB 3 ml [id number] MELISSA Administration Aspirin 81 mg 12/30/18 09:00 01/02/19 09:39 Aspirin Chewable PO 81 mg DAILY MELISSA Administration Bisacodyl 10 mg 12/29/18 10:52 12/31/18 09:20 Dulcolax PO 10 mg DAILYPRN PRN Administration Constipation Carvedilol 25 mg 12/30/18 09:00 01/02/19 09:40 Coreg PO 25 mg BID MELISSA Administration Cefdinir 300 mg 12/31/18 09:00 01/02/19 09:40 Omnicef PO 01/05/19 09:01 300 mg BID MELISSA Administration Cyanocobalamin 1,000 mcg 12/30/18 09:00 01/02/19 09:40 Vitamin B-12 PO 1,000 mcg DAILY MELISSA Administration Dabigatran 150 mg 12/30/18 09:00 01/02/19 09:40 Pradaxa PO 150 mg BID MELISSA Administration Diltiazem HCl 60 mg 12/30/18 09:00 01/02/19 09:40 Cardizem Sr PO 60 mg TID MELISSA Administration Famotidine 20 mg 12/29/18 21:00 01/02/19 09:40 Pepcid PO 20 mg BID MELISSA Administration Folic Acid 1 mg 12/30/18 09:00 01/02/19 09:41 Folvite PO 1 mg DAILY MELISSA Administration Furosemide 20 mg 01/02/19 09:00 01/02/19 09:41 Lasix PO 20 mg DAILY MELISSA Administration Guaifenesin 600 mg 01/01/19 21:00 01/02/19 09:41 Mucinex PO 600 mg Q12HR MELISSA Administration Insulin Human Lispro 0 units 12/31/18 14:06 01/01/19 22:32 Humalog SC 4 unit .MILD SLIDING SCALE PRN Administration Mild Correctional Scale Ketoconazole 0.5 gm 01/01/19 09:00 01/02/19 09:41 Nizoral 2% Cream TOP 0.5 gm DAILY MELISSA Administration Lisinopril 20 mg 12/30/18 09:00 01/02/19 09:41 Zestril PO 20 mg DAILY MELISSA Administration Mometasone Furoate/Formoterol Fumar 2 puff 12/29/18 18:30 01/02/19 10:34 Dulera 200 Mcg/5 Mcg Inhaler INH 2 puff BID-RT MELISSA Administration Prednisone 20 mg 01/01/19 08:00 01/02/19 09:39 Prednisone PO 20 mg QAM-WM MELISSA Administration Rosuvastatin Calcium 5 mg 12/30/18 21:00 01/01/19 21:01 Crestor PO 5 mg HS MELISSA Administration Tamsulosin HCl 0.4 mg 12/31/18 21:00 01/01/19 21:02 Flomax PO 0.4 mg HS MELISSA Administration - Exam awake alert (obese) Eye: anicteric sclera ENT: normocephalic atraumatic Neck: supple, symmetric Heart: irregular Respiratory: no wheezes, no ronchi (fair air entry with few transmitted sound.) Gastrointestinal: soft, non-tender, non-distended, normal bowel sounds (obese) Extremities: no cyanosis (trace bilateral feet edema) Neurological: CN's grossly intact, no focal deficits Psychiatric: normal affect, A&O x 3 Hosp A/P (1) Acute on chronic respiratory failure with hypoxia and hypercapnia Code(s): J96.21 - ACUTE AND CHRONIC RESPIRATORY FAILURE WITH HYPOXIA; J96.22 - ACUTE AND CHRONIC RESPIRATORY FAILURE WITH HYPERCAPNIA Status: Acute (2) COPD exacerbation Code(s): J44.1 - CHRONIC OBSTRUCTIVE PULMONARY DISEASE W (ACUTE) EXACERBATION Status: Acute (3) Acute metabolic encephalopathy Code(s): G93.41 - METABOLIC ENCEPHALOPATHY Status: Acute (4) Hyperglycemia Code(s): R73.9 - HYPERGLYCEMIA, UNSPECIFIED Status: Acute (5) Type 2 myocardial infarction Code(s): I21.A1 - MYOCARDIAL INFARCTION TYPE 2 Status: Acute (6) Chronic atrial fibrillation with RVR Code(s): I48.2 - CHRONIC ATRIAL FIBRILLATION Status: Chronic (7) Chronic respiratory acidosis Code(s): E87.2 - ACIDOSIS Status: Chronic (8) Chronic stage c diastolic heart failure Code(s): I50.32 - CHRONIC DIASTOLIC (CONGESTIVE) HEART FAILURE Status: Chronic (9) Dyslipidemia Code(s): E78.5 - HYPERLIPIDEMIA, UNSPECIFIED Status: Chronic (10) Hypertension Code(s): I10 - ESSENTIAL (PRIMARY) HYPERTENSION Status: Chronic (11) PAIGE on CPAP Code(s): G47.33 - OBSTRUCTIVE SLEEP APNEA (ADULT) (PEDIATRIC); Z99.89 - DEPENDENCE ON OTHER ENABLING MACHINES AND DEVICES Status: Chronic (12) Obesity (BMI 30-39.9) Code(s): E66.9 - OBESITY, UNSPECIFIED Status: Chronic - Plan Add azithromycin to omnicef for atypical coverage. Continue other treatment PT/OT eval and treat. Monitor CBC and BMP
[2019-01-02] MEDS: HumaLOG 300 UNITS/3 ML VIAL SC PRN (20:21)
[2019-01-02] MEDS: Tamsulosin HCl 0.4 MG CAP PO SCH (20:22)
[2019-01-02] MEDS: Rosuvastatin 5 MG TAB PO SCH (20:28)
[2019-01-03 04:33] LABS: Hemoglobin 12.8 g/dL (14.0-18.0); Platelet Count 168 thou/uL (130-400)
[2019-01-03 04:50] LABS: BUN (Urea Nitrogen) 50 mg/dL (8.4-25.7); Calc. Creatinine Clearance 164 mL/min (70-130); Calcium 9.4 mg/dL (7.8-10.44); Estimated GFR-MDRD Greater than 90; Glucose 181 mg/dL (80-115)
[2019-01-03 05:00] LABS: Anion Gap 14 mmol/L (10-20); Carbon Dioxide 35 mmol/L (23-31); Chloride 94 mmol/L (98-107); Potassium 3.7 mmol/L (3.5-5.1); Sodium 139 mmol/L (136-145)
[2019-01-03] MEDS: Mometasone/Formoterol 120 PUFF INHALER INH SCH ×2 (07:53→19:08)
[2019-01-03] MEDS: predniSONE 20 MG TAB PO SCH (09:00)
[2019-01-03] MEDS: Aspirin Chewable 81 MG TAB PO SCH (09:00)
[2019-01-03] MEDS: Carvedilol 25 MG TAB PO SCH ×2 (09:00→20:21)
[2019-01-03] MEDS: Cyanocobalamin (Vitamin B-12) 1,000 MCG TAB PO SCH (09:00)
[2019-01-03] MEDS: Cefdinir 300 MG CAP PO SCH ×2 (09:00→20:21)
[2019-01-03] MEDS: Dabigatran 150 mg Capsule PO SCH ×2 (09:01→20:23)
[2019-01-03] MEDS: Diltiazem HCl SR 60 mg Capsule PO SCH ×3 (09:01→20:22)
[2019-01-03] MEDS: guaiFENesin ER 600 MG TAB PO SCH ×2 (09:02→20:21)
[2019-01-03] MEDS: Furosemide 20 MG TAB PO SCH (09:02)
[2019-01-03] MEDS: Folic Acid 1 MG TAB PO SCH (09:02)
[2019-01-03] MEDS: Famotidine 20 MG TAB PO SCH ×2 (09:02→20:21)
[2019-01-03] MEDS: Lisinopril 20 MG TAB PO SCH (09:03)
[2019-01-03] MEDS: Ketoconazole 2% Cream 15 gm Tube TOP SCH (09:03)
--- NOTE | 2019-01-03 09:16 | PRG ---
DATE OF SERVICE: 01/03/2019 SUBJECTIVE: This morning, he is awake, alert, and responsive. OBJECTIVE: VITAL SIGNS: Saturations are 97% on 3 L, pulse 73, respiratory rate 17, blood pressure 99/77. CHEST: Decreased breath sounds. No wheezing. CARDIAC: Normal S1, S2. No gallops. ABDOMEN: No masses. IMPRESSION: Chronic obstructive pulmonary disease exacerbation, bronchitis, supraventricular tachycardia. Await input from Cardiology. Pulmonary wilson, he is stable enough to be discharged home. He is walking with some help. Continue PT, supportive care. Job ID: [id number]
[2019-01-03 10:09] VITALS: BP 91/58
--- NOTE | 2019-01-03 18:28 | PDOC.HOSPP ---
- Subjective Subjective: Patient seen and examined for Resp failure. No CP or SOB. BP on lower side per RN. No new complaints. No overnight events - Objective Vital Signs & Weight: Vital Signs (12 hours) Temp Pulse Pulse Resp BP BP Pulse Ox 01/03/19 15:23 98.1 F 01/03/19 14:33 79 17 99 01/03/19 11:00 81 16 94 L 01/03/19 10:40 98.4 F 01/03/19 09:12 75 91/58 L 01/03/19 09:03 135/89 01/03/19 07:54 97 01/03/19 07:49 83 17 97 01/03/19 07:15 97.3 F L Pulse Ox Pulse Ox 01/03/19 15:23 01/03/19 14:33 01/03/19 11:00 01/03/19 10:40 01/03/19 09:12 91 L 67 L 01/03/19 09:03 01/03/19 07:54 01/03/19 07:49 01/03/19 07:15 Weight Weight 281 lb 4 oz Most Recent Monitor Data Heart Rate from ECG 68 NIBP 97/51 NIBP BP-Mean 66 Respiration from ECG 13 SpO2 98 I&O: 01/02/19 01/03/19 01/04/19 06:59 06:59 06:59 Intake Total 3166 176 4659 Output Total 1450 1100 350 Balance 290 -130 750 Result Diagrams: 01/03/19 03:31 01/04/19 03:49 Additional Labs: Accuchecks 01/03/19 01/03/19 01/02/19 16:27 10:15 20:23 POC Glucose 170 H 146 H 218 H EKG Reviewed by me: Yes (Tele Afib) ROS - Review of Systems All systems: All other ROS were reviewed and found negative. Constitutional: denies: fever, chills, sweats, weakness, malaise, other Respiratory: denies: cough, dry, shortness of breath, hemoptysis, SOB with excertion, pleuritic pain, sputum, wheezing, other Cardiovascular: denies: chest pain, palpitations, orthopnea, paroxysmal noc. dyspnea, edema, light headedness, other - Medication Medications: Active Medications Generic Name Dose Route Start Last Admin Trade Name Freq PRN Reason Stop Dose Admin Acetaminophen 650 mg 12/29/18 10:52 01/02/19 11:40 Tylenol PO 650 mg Q4H PRN Administration Headache/Fever/Mild Pain (1-3) Albuterol/Ipratropium 3 ml 12/29/18 14:30 01/03/19 14:33 Duoneb NEB 3 ml [id number] MELISSA Administration Aspirin 81 mg 12/30/18 09:00 01/03/19 09:00 Aspirin Chewable PO 81 mg DAILY MELISSA Administration Bisacodyl 10 mg 12/29/18 10:52 12/31/18 09:20 Dulcolax PO 10 mg DAILYPRN PRN Administration Constipation Carvedilol 25 mg 12/30/18 09:00 01/03/19 09:00 Coreg PO 25 mg BID MELISSA Administration Cefdinir 300 mg 12/31/18 09:00 01/03/19 09:00 Omnicef PO 01/05/19 09:01 300 mg BID MELISSA Administration Cyanocobalamin 1,000 mcg 12/30/18 09:00 01/03/19 09:00 Vitamin B-12 PO 1,000 mcg DAILY MELISSA Administration Dabigatran 150 mg 12/30/18 09:00 01/03/19 09:01 Pradaxa PO 150 mg BID MELISSA Administration Famotidine 20 mg 12/29/18 21:00 01/03/19 09:02 Pepcid PO 20 mg BID MELISSA Administration Folic Acid 1 mg 12/30/18 09:00 01/03/19 09:02 Folvite PO 1 mg DAILY MELISSA Administration Furosemide 20 mg 01/02/19 09:00 01/03/19 09:02 Lasix PO 20 mg DAILY MELISSA Administration Guaifenesin 600 mg 01/01/19 21:00 01/03/19 09:02 Mucinex PO 600 mg Q12HR MELISSA Administration Insulin Human Lispro 0 units 12/31/18 14:06 01/02/19 20:21 Humalog SC 2 unit .MILD SLIDING SCALE PRN Administration Mild Correctional Scale Ketoconazole 0.5 gm 01/01/19 09:00 01/03/19 09:03 Nizoral 2% Cream TOP 0.5 gm DAILY MELISSA Administration Mometasone Furoate/Formoterol Fumar 2 puff 12/29/18 18:30 01/03/19 07:53 Dulera 200 Mcg/5 Mcg Inhaler INH 2 puff BID-RT MELISSA Administration Prednisone 20 mg 01/01/19 08:00 01/03/19 09:00 Prednisone PO 20 mg QAM-WM MELISSA Administration Rosuvastatin Calcium 5 mg 12/30/18 21:00 01/02/19 20:28 Crestor PO 5 mg HS MELISSA Administration Tamsulosin HCl 0.4 mg 12/31/18 21:00 01/02/19 20:22 Flomax PO 0.4 mg HS MELISSA Administration - Exam NAD Heart: no gallops, irregular Respiratory: CTAB, no rales Gastrointestinal: soft, non-tender Extremities: no edema Psychiatric: A&O x 3 Hosp A/P (1) Acute on chronic respiratory failure with hypoxia and hypercapnia Code(s): J96.21 - ACUTE AND CHRONIC RESPIRATORY FAILURE WITH HYPOXIA; J96.22 - ACUTE AND CHRONIC RESPIRATORY FAILURE WITH HYPERCAPNIA Status: Acute (2) COPD exacerbation Code(s): J44.1 - CHRONIC OBSTRUCTIVE PULMONARY DISEASE W (ACUTE) EXACERBATION Status: Acute (3) Type 2 myocardial infarction Code(s): I21.A1 - MYOCARDIAL INFARCTION TYPE 2 Status: Acute (4) Chronic atrial fibrillation with RVR Code(s): I48.2 - CHRONIC ATRIAL FIBRILLATION Status: Chronic (5) Hypertension Code(s): I10 - ESSENTIAL (PRIMARY) HYPERTENSION Status: Chronic (6) Obesity (BMI 30-39.9) Code(s): E66.9 - OBESITY, UNSPECIFIED Status: Chronic (7) Chronic anticoagulation Code(s): 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
[2019-01-03] MEDS: HumaLOG 300 UNITS/3 ML VIAL SC PRN (20:20)
[2019-01-03] MEDS: Tamsulosin HCl 0.4 MG CAP PO SCH (20:21)
[2019-01-03] MEDS: Rosuvastatin 5 MG TAB PO SCH (20:22)
[2019-01-04 04:28] LABS: Anion Gap 11 mmol/L (10-20); BUN (Urea Nitrogen) 53 mg/dL (8.4-25.7); Calc. Creatinine Clearance 177 mL/min (70-130); Calcium 9.1 mg/dL (7.8-10.44); Carbon Dioxide 37 mmol/L (23-31); Chloride 96 mmol/L (98-107); Estimated GFR-MDRD Greater than 90; Glucose 108 mg/dL (80-115); Magnesium 2.3 mg/dL (1.6-2.6); Potassium 3.8 mmol/L (3.5-5.1)
[2019-01-04 04:42] LABS: Sodium 140 mmol/L (136-145)
[2019-01-04] MEDS: Mometasone/Formoterol 120 PUFF INHALER INH SCH (07:53)
[2019-01-04] MEDS ORDERED: Lisinopril 5 MG TAB PO SCH (09:00)
[2019-01-04] MEDS: predniSONE 20 MG TAB PO SCH (09:20)
[2019-01-04] MEDS: Carvedilol 25 MG TAB PO SCH (09:20)
[2019-01-04] MEDS: Cefdinir 300 MG CAP PO SCH (09:20)
[2019-01-04] MEDS: Aspirin Chewable 81 MG TAB PO SCH (09:20)
--- NOTE | 2019-01-04 09:20 | PRG ---
DATE OF SERVICE: 01/04/2019 SUBJECTIVE: This morning, he is awake, alert, responsive, doing much better. OBJECTIVE: VITAL SIGNS: Saturations are 91 on 3 L, temperature 97, pulse 87, blood pressure 120/80. CHEST: Decreased breath sounds. No wheezing. CARDIAC: Normal S1 and S2. No gallops. ABDOMEN: No masses. LABORATORY DATA: BUN is 53, much improved. IMPRESSION: Cor pulmonale, right-sided failure, normal systolic function. PLAN: Continue PT, supportive care. Placement. Hold off Lasix for the time being until it causes significant lower extremity swelling. We will follow. Job ID: [id number]
[2019-01-04] MEDS: Dabigatran 150 mg Capsule PO SCH (09:21)
[2019-01-04] MEDS: Diltiazem HCl SR 60 mg Capsule PO SCH (09:21)
[2019-01-04] MEDS: Cyanocobalamin (Vitamin B-12) 1,000 MCG TAB PO SCH (09:21)
[2019-01-04] MEDS: Famotidine 20 MG TAB PO SCH (09:22)
[2019-01-04] MEDS: guaiFENesin ER 600 MG TAB PO SCH (09:22)
[2019-01-04] MEDS: Furosemide 20 MG TAB PO SCH (09:22)
[2019-01-04] MEDS: Folic Acid 1 MG TAB PO SCH (09:22)
[2019-01-04] MEDS: Ketoconazole 2% Cream 15 gm Tube TOP SCH (09:22)
[2019-01-04 10:34] VITALS: TEMP 97.8
--- NOTE | 2019-01-05 09:24 | DIS ---
DATE OF ADMISSION: 12/29/2018 DATE OF DISCHARGE: 01/04/2019 DISCHARGE DISPOSITION: To [facility]. The patient was seen and examined on the day of discharge. Denies any new complaints. No chest pain, shortness of breath, palpitations. DISCHARGE MEDICATIONS: 1. Flomax 0.4 mg at bedtime. 2. Senokot-S as needed. 3. Prednisone taper over the next 3 to 4 days. 4. Lisinopril 5 mg daily. 5. Lasix 20 mg daily. 6. Folic acid 1 mg daily. 7. Pepcid 20 mg twice a day. Pepcid can be discontinued after 2 weeks. 8. Vitamin B12 of 1000 mcg daily. 9. Omnicef 300 mg twice a day for next 2 days. 10. DuoNebs every 4 hourly. 11. Crestor 5 mg at bedtime. 12. Cardizem 60 mg three times a day. 13. Pradaxa 150 mg b.i.d. 14. Coreg 25 mg b.i.d. 15. Symbicort 80/4.5 one puff b.i.d. 16. Aspirin 81 mg daily. 17. Albuterol inhaler as needed. INPATIENT WORKING SECOND HAND: 1. Pulmonary, Dr. Jacques. 2. Cardiology, Dr. Laguerre. BRIEF HOSPITAL COURSE: The patient is a 68-year-old male with chronic atrial fibrillation, chronic diastolic heart failure, chronic respiratory failure on home O2, hypertension and dyslipidemia, presented to the hospital on December 29, 2018, with increasing shortness of breath along with hypoxia. He also had altered mental status. He currently lives at home with his . Please refer to the history and physical for further details. The patient was admitted to the hospital with a diagnosis of acute hypoxic and hypercapnic respiratory failure. His ABGs showed pH of 7.24 with pCO2 of 138.2, bicarbonate 57.5, pO2 of 73.7 on 100% FiO2, CPAP. He was monitored in the Intermediate Care Unit. He was seen by Critical Care, Dr. Jacques. His mentation gradually improved. He is back on O2 nasal cannula. The patient was seen by Cardiology as well due to acute on chronic diastolic heart failure. He showed good improvement with IV Lasix. He has been cleared by Cardiology and Pulmonary for discharge. FINAL DIAGNOSES: 1. Acute hypoxic and hypercapnic respiratory failure. 2. Chronic obstructive pulmonary disease exacerbation. 3. Acute on chronic diastolic heart failure. 4. Obstructive sleep apnea, on CPAP. 5. Chronic hypoxic and hypercapnic respiratory failure. 6. Chronic atrial fibrillation, on anticoagulation. 7. Type 2 myocardial infarction. His maximum troponin was 0.079 (due to demand ischemia). 8. Hypertension. 9. Obesity with a BMI of 37.8. 10. Hypernatremia. 11. Chronic anemia. DIAGNOSTIC TESTS: Echocardiogram showed left ventricular ejection fraction of 55% with probable diastolic dysfunction, moderately enlarged right atrium, mild tricuspid regurgitation, mild pulmonic regurgitation. The patient was extensively counseled on fluid restriction. TIME SPENT WITH PATIENT: Total time coordinating the discharge of this patient was 39 minutes. Job ID: [id number]
== END 2019-01-04 14:48 | DRG 280 ==
LOC: EDBD 07:22 → ERS 07:22 → IMCU/EMU 11:07
PROVIDERS: ADMIT Internal Medicine; ATTEND Internal Medicine
PROC: 5A09457 Assistance with Respiratory Ventilation, 24-96 Consecutive Hours, Continuous Positive Airway Pressure (ICD-10-PCS; principal; 2018-12-29)
DX: I11.0 Hypertensive heart disease with heart failure (principal); G93.41 Metabolic encephalopathy; I21.A1 Myocardial infarction type 2; J96.21 Acute and chronic respiratory failure with hypoxia; J96.22 Acute and chronic respiratory failure with hypercapnia; E87.3 Alkalosis; J44.1 Chronic obstructive pulmonary disease with (acute) exacerbation; I50.33 Acute on chronic diastolic (congestive) heart failure; I48.2 Chronic atrial fibrillation; E78.5 Hyperlipidemia, unspecified; E66.01 Morbid (severe) obesity due to excess calories; F03.90 Unspecified dementia, unspecified severity, without behavioral disturbance, psychotic disturbance, mood disturbance, and anxiety; G47.33 Obstructive sleep apnea (adult) (pediatric); R73.9 Hyperglycemia, unspecified; D75.89 Other specified diseases of blood and blood-forming organs; Z68.37 Body mass index [BMI] 37.0-37.9, adult; Z99.81 Dependence on supplemental oxygen; Z79.01 Long term (current) use of anticoagulants; Z79.899 Other long term (current) drug therapy; Z79.82 Long term (current) use of aspirin
CPT/HCPCS: 36415; 36416; 51702; 71045; 80048; 80053; 81003; 81015; 82550; 82553; 82805; 83605; 83735; 84153; 84154; 84484; 85014; 85018; 85025; 85049; 85610; 85730; 87040; 87070; 87086; 87205; 93005; 93306; 94640; 94644; 94660; 96361; 96374; 96375; J0696; J1120; J2920; J2930; J3475; J3490; J7512; J7611; J7620